=== PATIENT | female | born 1990 | race Two or more races ===

== ENCOUNTER 2016-08-25 21:23 | Emergency (ER) | payer SELFPAY ==
[~2016-08-25] VITALS: Ht 160 cm; Wt 72.6 kg
[2016-08-25 21:31] VITALS: BP 133/88
[2016-08-25] MEDS ORDERED: DEXAMETHASONE 4 MG TABLET PO ONE (21:45)
[2016-08-25] MEDS ORDERED: DEXAMETHASONE 4 MG TABLET ONE (21:47)
== END 2016-08-25 21:59 | disposition home or self-care (01) ==
LOC: ED 21:53
DX: J02.0 Streptococcal pharyngitis (principal)
CPT/HCPCS: 99283